=== PATIENT | female | born 1960 | race Caucasian/White ===

== ENCOUNTER 2017-05-10 21:28 | Emergency (ER) | payer MEDICAID ==
[~2017-05-10] VITALS: Ht 162.6 cm; Wt 64.9 kg
[~2017-05-10 21:28] MED LIST: HYDR-565 PO; IBUP-812 PO; MUPI15CR TOP
[2017-05-10] MEDS ORDERED: CEPH-571 PO (22:09)
[2017-05-10 22:22] VITALS: BP 140/80
== END 2017-05-10 22:24 | disposition home or self-care (01) ==
LOC: ER 21:29
DX: L03.115 Cellulitis of right lower limb (principal); S80.811A Abrasion, right lower leg, initial encounter; Z86.14 Personal history of Methicillin resistant Staphylococcus aureus infection; Z98.890 Other specified postprocedural states; Z60.2 Problems related to living alone; Z79.899 Other long term (current) drug therapy; W01.0XXA Fall on same level from slipping, tripping and stumbling without subsequent striking against object, initial encounter; Y93.89 Activity, other specified; Y92.89 Other specified places as the place of occurrence of the external cause; Y99.8 Other external cause status
CPT/HCPCS: 99283

== ENCOUNTER 2019-02-09 13:30 | Emergency (ER) | payer MEDICAID ==
[~2019-02-09] VITALS: Ht 167.6 cm; Wt 64.0 kg
[~2019-02-09 13:30] MED LIST changes: +CEPH-571 PO; +HYDR-4353 PO; -HYDR-565 PO
[2019-02-09 13:56] VITALS: BP 121/82
--- NOTE | 2019-02-09 15:15 | NUR ---
per registration pt left without been seen, "tired of waiting"
== END 2019-02-09 15:16 | disposition left against medical advice (07) ==
LOC: ER 13:31
DX: K62.5 Hemorrhage of anus and rectum (principal); Z53.21 Procedure and treatment not carried out due to patient leaving prior to being seen by health care provider

== ENCOUNTER 2020-11-21 11:26 | Emergency (ER) | payer MEDICAID ==
[~2020-11-21] VITALS: Ht 162.6 cm; Wt 60.6 kg
[~2020-11-21 11:26] MED LIST changes: +CEPH-585 PO
[2020-11-21 11:43] VITALS: BP 136/77
== END 2020-11-21 13:46 | disposition home or self-care (01) ==
LOC: ER 11:26
DX: M25.522 Pain in left elbow (principal); Z87.81 Personal history of (healed) traumatic fracture; Z86.14 Personal history of Methicillin resistant Staphylococcus aureus infection; Z72.89 Other problems related to lifestyle; Z79.2 Long term (current) use of antibiotics; Z79.899 Other long term (current) drug therapy
CPT/HCPCS: 73090; 99283

== ENCOUNTER 2022-04-19 20:19 | Emergency (ER) | payer MEDICAID ==
[~2022-04-19] VITALS: Ht 162.6 cm; Wt 61.4 kg
[~2022-04-19 20:19] MED LIST changes: -CEPH-585 PO
[2022-04-19 20:34] VITALS: BP 147/86
[2022-04-19] MEDS ORDERED: HYDROcodone/acetaminophen 5mg/325mg tablet PO ONE (21:40)
[2022-04-19] MEDS ORDERED: bacitracin 15gm ointment TP ONE (22:05)
== END 2022-04-19 22:32 | disposition home or self-care (01) ==
LOC: ER 20:20
DX: S61.412A Laceration without foreign body of left hand, initial encounter (principal); M79.642 Pain in left hand; F17.200 Nicotine dependence, unspecified, uncomplicated; Z86.14 Personal history of Methicillin resistant Staphylococcus aureus infection; Z98.890 Other specified postprocedural states; Z72.89 Other problems related to lifestyle; Z60.2 Problems related to living alone; Z79.2 Long term (current) use of antibiotics; Z79.899 Other long term (current) drug therapy; W26.0XXA Contact with knife, initial encounter; Y93.89 Activity, other specified; Y92.89 Other specified places as the place of occurrence of the external cause; Y99.8 Other external cause status
CPT/HCPCS: 12001; 73130; 99283; A6258; A6449

== ENCOUNTER 2022-08-17 16:22 | Emergency (ER) | payer OTHER, MEDICAID ==
[~2022-08-17] VITALS: Ht 162.6 cm; Wt 65.2 kg
[2022-08-17 16:34] VITALS: BP 128/89
== END 2022-08-17 18:30 | disposition home or self-care (01) ==
LOC: ER 16:22
DX: S52.512A Displaced fracture of left radial styloid process, initial encounter for closed fracture (principal); Z86.14 Personal history of Methicillin resistant Staphylococcus aureus infection; Z98.890 Other specified postprocedural states; Z72.89 Other problems related to lifestyle; Z60.2 Problems related to living alone; Z79.899 Other long term (current) drug therapy; V87.7XXA Person injured in collision between other specified motor vehicles (traffic), initial encounter; Y93.89 Activity, other specified; Y92.488 Other paved roadways as the place of occurrence of the external cause; Y99.8 Other external cause status
CPT/HCPCS: 73030; 73110; 99284; A6446; A6449

== ENCOUNTER 2024-03-30 16:44 | Emergency (ER) | payer MEDICAID ==
[~2024-03-30] VITALS: Ht 162.6 cm; Wt 63.1 kg
[2024-03-30 16:45] VITALS: BP 135/73; PULSE 90; RESP 16; O2SAT 96
[2024-03-30] MEDS: triamcinolone acetonide 40mg/ml inj IJ ONE (18:34)
[2024-03-30 18:54] VITALS: TEMP 98
== END 2024-03-30 18:57 | disposition home or self-care (01) ==
LOC: ER 16:44
DX: M77.12 Lateral epicondylitis, left elbow (principal); Z98.890 Other specified postprocedural states
CPT/HCPCS: 20552; 73080; 99284; A4565